=== PATIENT | male | born 1965 | race Asian ===

== ENCOUNTER 2017-12-11 14:11 | Outpatient (CLI) | payer OTHER | END 2017-12-11 21:14 | disposition home or self-care (01) | LOC: RAD 14:11 | DX: S52.209B Unspecified fracture of shaft of unspecified ulna, initial encounter for open fracture type I or II (principal); S52.209D Unspecified fracture of shaft of unspecified ulna, subsequent encounter for closed fracture with routine healing ==

== ENCOUNTER 2018-01-08 14:06 | Outpatient (CLI) | payer OTHER | END 2018-01-08 20:09 | disposition home or self-care (01) | LOC: RAD 14:06 | DX: S52.20 Unspecified fracture of shaft of ulna (principal) ==

== ENCOUNTER 2018-02-05 13:01 | Outpatient (CLI) | payer OTHER | END 2018-02-05 21:49 | disposition home or self-care (01) | LOC: RAD 13:01 | DX: M79.631 Pain in right forearm (principal) ==

== ENCOUNTER 2018-03-19 12:12 | Outpatient (CLI) | payer OTHER | END 2018-03-19 22:28 | disposition home or self-care (01) | LOC: RAD 12:12 | DX: M79.631 Pain in right forearm (principal) ==

== ENCOUNTER 2019-06-07 09:44 | Outpatient (CLI) | payer OTHER | END 2019-06-07 19:09 | disposition home or self-care (01) | LOC: RAD 09:44 | DX: M54.40 Lumbago with sciatica, unspecified side (principal) ==

== ENCOUNTER 2021-01-05 08:24 | Outpatient (CLI) | payer BC | END 2021-01-05 19:30 | disposition home or self-care (01) | LOC: MRI 08:24 | PROVIDERS: ATTEND Nurse Practitioner Family | DX: M47.26 Other spondylosis with radiculopathy, lumbar region (principal) ==

== ENCOUNTER 2021-04-06 08:19 | Outpatient (CLI) | payer BC | END 2021-04-06 22:03 | disposition home or self-care (01) | LOC: CT 08:19 | PROVIDERS: ATTEND Neurological Surgery | DX: M54.16 Radiculopathy, lumbar region (principal) ==

== ENCOUNTER 2021-09-02 12:44 | Outpatient (CLI) | payer OTHER ==
[2021-09-02 13:19] LABS: PLATELET COUNT 215 K/uL (142-355)
== END 2021-09-02 18:57 | disposition home or self-care (01) ==
LOC: RAD 12:44 → CT 12:44 → RAD 18:57
PROVIDERS: ATTEND Nurse Practitioner Primary Care
DX: Z20.822 Contact with and (suspected) exposure to COVID-19 (principal); R79.1 Abnormal coagulation profile
CPT/HCPCS: 36415; 82565; 82728; 84520; 85027; 85379; 86140

== ENCOUNTER 2023-07-28 09:52 | Outpatient (CLI) | payer OTHER | END 2023-07-28 19:16 | disposition home or self-care (01) | LOC: US 09:52 | PROVIDERS: ATTEND Nurse Practitioner Family | DX: K40.90 Unilateral inguinal hernia, without obstruction or gangrene, not specified as recurrent (principal) ==